=== PATIENT | female | born 1945 | race Caucasian/White ===

== ENCOUNTER 2021-01-05 20:36 | Inpatient (IN) | payer MEDICARE ==
[~2021-01-05] VITALS: Ht 165.1 cm; Wt 59.3 kg
[~2021-01-05 20:36] MED LIST: Colace100 MG PO; Norco 5-325 Ta1 EACH PO
[2021-01-05 21:13] LABS: BASOPHILS ABSOLUTE AUTO 0.06 K/mm3 (0.00-0.23); BASOPHILS PERCENT AUTO 1 % (0-2); EOSINOPHILS ABSOLUTE AUTO 0.13 K/mm3 (0.00-0.68); EOSINOPHILS PERCENT AUTO 2 % (0-6); Hematocrit 39.6 % (33.0-51.0); Hemoglobin 13.4 g/dL (11.5-16.0); IMMATURE GRAN ABSOLUTE AUTO 0.03 K/mm3 (0.00-0.10); IMMATURE GRAN PERCENT AUTO 0 % (0-1); LYMPHOCYTES ABSOLUTE AUTO 2.01 K/mm3 (0.84-5.20); LYMPHOCYTES PERCENT AUTO 25 % (21-46); MONOCYTES ABSOLUTE AUTO 0.79 K/mm3 (0.16-1.47); MONOCYTES PERCENT AUTO 10 % (4-13); Mean Corpuscular HGB 29.3 pg (26.0-34.0); Mean Corpuscular HGB Conc 33.8 g/dL (31.5-36.5); Mean Corpuscular Volume 87 fL (80-100); Mean Platelet Volume 11.6 fL (9.1-12.4); NEUTROPHILS ABSOLUTE AUTO 5.14 K/mm3 (1.96-9.15); NEUTROPHILS PERCENT AUTO 63 % (41-73); Platelet Count 227 K/mm3 (150-400); RDW Standard Deviation 43.8 fL (35.1-46.3); Red Blood Cell Count 4.58 M/mm3 (3.80-5.20); White Blood Cell Count 8.16 K/mm3 (4.00-11.30)
[2021-01-05 21:35] LABS: Alanine Aminotransfer (ALT/SGP 13 U/L (12-78); Albumin, Blood 3.7 g/dL (3.4-5.0); Albumin/Globulin Ratio 0.8 (0.8-1.8); Alk Phos 94 U/L (50-136); Anion Gap 8 mmol/L (6-16); Aspartate Aminotrans (AST/SGOT 13 U/L (12-37); Bilirubin, Total 0.4 mg/dL (0.1-1.0); Blood Urea Nitrogen 34 mg/dL (8-24); Bun/Creatinine Ratio 28.6 (12.0-20.0); CO2, Blood 22 mmol/L (21-32); CPK Creatine Kinase 50 U/L (26-193); Calcium, Blood 9.2 mg/dL (8.5-10.1); Chloride, Blood 112 mmol/L (98-108); Creatine Kinase MB 1.5 ng/mL (0.0-3.6); Creatinine, Blood 1.19 mg/dL (0.40-1.00); Globulin, Blood 4.6 g/dL (2.2-4.0); Glomerular Filtration Rate 44 (60-); Glucose, Blood 118 mg/dL (70-99); Potassium, Blood 3.4 mmol/L (3.5-5.5); Sodium, Blood 142 mmol/L (136-145); Total Protein, Blood 8.3 g/dL (6.4-8.2); Troponin I <0.015 ng/mL (0.000-0.040)
[2021-01-06 01:27] LABS: Source, Urine Clean Catch
[2021-01-06 01:30] LABS: Bilirubin, Urine Neg (Neg); Blood, Urine 4+ (Neg); Glucose Qualitative, Urine Neg (Neg); Ketones, Urine 1+ (Neg); Leukocyte Esterase, Urine Neg (Neg); Nitrite, Urine Neg (Neg); Protein, Urine 3+ (Neg); Specific Gravity, Urine 1.025 (1.003-1.022); Urobilinogen, Urine NORM (Normal)
[2021-01-06 01:36] LABS: Appearance, Urine Clear (Clear); Color, Urine Yellow (P-Yellow)
[2021-01-06 01:37] LABS: Amorphous Light (0-Heavy); Bacteria Few /hpf; Red Blood Cells, Urine 0-2 /hpf (0-2); Squamous Epithelial Cells Mod /hpf (Few); White Blood Cells, Urine Not Seen /hpf (0-5)
[2021-01-06 05:31] LABS: BASOPHILS ABSOLUTE AUTO 0.04 K/mm3 (0.00-0.23); BASOPHILS PERCENT AUTO 1 % (0-2); EOSINOPHILS ABSOLUTE AUTO 0.15 K/mm3 (0.00-0.68); EOSINOPHILS PERCENT AUTO 2 % (0-6); Hematocrit 34.8 % (33.0-51.0); Hemoglobin 11.4 g/dL (11.5-16.0); IMMATURE GRAN ABSOLUTE AUTO 0.02 K/mm3 (0.00-0.10); IMMATURE GRAN PERCENT AUTO 0 % (0-1); LYMPHOCYTES ABSOLUTE AUTO 2.42 K/mm3 (0.84-5.20); LYMPHOCYTES PERCENT AUTO 32 % (21-46); MONOCYTES ABSOLUTE AUTO 0.77 K/mm3 (0.16-1.47); MONOCYTES PERCENT AUTO 10 % (4-13); Mean Corpuscular HGB 28.5 pg (26.0-34.0); Mean Corpuscular HGB Conc 32.8 g/dL (31.5-36.5); Mean Corpuscular Volume 87 fL (80-100); Mean Platelet Volume 11.4 fL (9.1-12.4); NEUTROPHILS ABSOLUTE AUTO 4.22 K/mm3 (1.96-9.15); NEUTROPHILS PERCENT AUTO 55 % (41-73); Platelet Count 191 K/mm3 (150-400); RDW Coefficient Variation 13.9 % (11.7-14.2); RDW Standard Deviation 45.1 fL (35.1-46.3); White Blood Cell Count 7.62 K/mm3 (4.00-11.30)
[2021-01-06 06:00] LABS: Albumin/Globulin Ratio 0.9 (0.8-1.8); Bilirubin, Total 0.4 mg/dL (0.1-1.0); Bun/Creatinine Ratio 26.1 (12.0-20.0); Calcium, Blood 8.2 mg/dL (8.5-10.1); Creatinine, Blood 1.11 mg/dL (0.40-1.00); Globulin, Blood 3.5 g/dL (2.2-4.0); Potassium, Blood 3.7 mmol/L (3.5-5.5); Total Protein, Blood 6.5 g/dL (6.4-8.2)
[2021-01-06 13:05] LABS: Source, Urine Clean Catch
[2021-01-06 13:26] LABS: Bilirubin, Urine Neg (Neg); Blood, Urine 3+ (Neg); Color, Urine Yellow (P-Yellow); Glucose Qualitative, Urine Neg (Neg); Ketones, Urine Neg (Neg); Leukocyte Esterase, Urine 1+ (Neg); Nitrite, Urine Neg (Neg); Protein, Urine 2+ (Neg); Specific Gravity, Urine 1.015 (1.003-1.022); Urobilinogen, Urine NORM (Normal); pH, Urine 6.5 (5.0-8.0)
[2021-01-06 13:50] LABS: U Amphetamine Screen Not Detected; U Barbituate Screen Not Detected; U Benzodiazapine Screen Not Detected; U Buprenorphine Screen Not Detected; U Cannabinoids Screen DETECTED; U Cocaine Screen Not Detected; U Methadone Screen Not Detected; U Methamphetamine Screen Not Detected; U Opiates Screen Not Detected; U Oxycodone Screen Not Detected; U Phencyclidine Screen Not Detected; U Propoxyphene Screen Not Detected
[2021-01-06 14:08] LABS: Appearance, Urine Hazy (Clear)
[2021-01-06 14:10] LABS: Amorphous Light (0-Heavy); Bacteria Many /hpf; Squamous Epithelial Cells Many /hpf (Few)
[2021-01-06 14:11] LABS: Hyaline Casts 0-2 /lpf (0-2)
--- NOTE | 2021-01-06 14:20 | NUR ---
Echocardiogram completed.
[2021-01-07 04:55] LABS: Bun/Creatinine Ratio 23.3 (12.0-20.0); Calcium, Blood 9.7 mg/dL (8.5-10.1); Creatinine, Blood 1.16 mg/dL (0.40-1.00); Potassium, Blood 4.1 mmol/L (3.5-5.5)
--- NOTE | 2021-01-07 05:06 | NUR ---
SUMMARY PT CONTINUES TO HAVE BACK DISCOMFORT. PT PAIN TX W/ ULTRAM AND TORADOL. PT DISCOMFORT WAS RELIEVED AND ABLE TO SLEEP. PT HAS BEEN VOIDING WELL T/O SHIFT. PT CURRENTLY AWAKE AND IN NO DISTRESS. CALL LIGHT IN REACH AND BED ALARM ON.
[2021-01-07] MEDS ORDERED: METO25 PO (13:43)
[2021-01-07] MEDS ORDERED: AMLO10 PO (13:43)
[2021-01-07] MEDS ORDERED: THERA-D2000 UNIT PO (13:44)
[2021-01-07] MEDS ORDERED: SERT50 PO (13:44)
[2021-01-07] MEDS ORDERED: TRAM50 PO (13:46)
--- NOTE | 2021-01-07 14:28 | NUR ---
PT IS A&O, PLEASANT AND CO-OP. C/O NAUSEA AT START OF SHIFT. UP TO BTHRM WITH SBA USING FWW D/T DIZZINESS. MEDICATED WITH ULTRAM X1 FOR LBP. PT REPORTED PAIN BEING GONE NOW. DR CHAPA HERE TO SEE PT THIS AM. REQUESTED TO BE NOTIFIED WHEN PT'S SON ARRIVED. DR CHAPA RETURNED TO TALK WITH PT AND SON. D/C ORDERS PLACED. PT TO GO TO SON'S HOUSE FOR A FEW DAYS. [facility] [place], PER PT REQUEST. PT TO F/U WITH DR CHAPA IN 2 WEEKS. PT WANTING TO MAKE HER OWN APPOINTMENT, SON WILL NEED TO TAKE HER. TELE AND IV SITE D/C'D WNL. PT CALLING SON BACK TO PICK HER UP.
== END 2021-01-07 14:58 | disposition home health service (06) | DRG 544 ==
LOC: ER 20:36 → ERHOLD 23:50 → MEDS 23:50
PROVIDERS: Family Medicine; Physician Assistant; ADMIT Internal Medicine
DX: M80.88XA Other osteoporosis with current pathological fracture, vertebra(e), initial encounter for fracture (principal); S79.911A Unspecified injury of right hip, initial encounter; M80.021A Age-related osteoporosis with current pathological fracture, right humerus, initial encounter for fracture; R55 Syncope and collapse; I51.7 Cardiomegaly; I16.0 Hypertensive urgency; I12.9 Hypertensive chronic kidney disease with stage 1 through stage 4 chronic kidney disease, or unspecified chronic kidney disease; F32.9 Major depressive disorder, single episode, unspecified; N18.9 Chronic kidney disease, unspecified; E87.6 Hypokalemia; R91.8 Other nonspecific abnormal finding of lung field; E86.0 Dehydration; R94.31 Abnormal electrocardiogram [ECG] [EKG]; W18.30XA Fall on same level, unspecified, initial encounter; Z87.891 Personal history of nicotine dependence; Z79.899 Other long term (current) drug therapy; Z86.73 Personal history of transient ischemic attack (TIA), and cerebral infarction without residual deficits
CPT/HCPCS: 36415; 70450; 71045; 72100; 72170; 73060; 80048; 80053; 81001; 82550; 82553; 84484; 85025; 87086; 93005; 93010; 93306; 96372; 96374; 96375; 96376; 97110; 97162; 97165; 97535; 99285-25; A9270; J0360; J1650; J1885; J2405; J3010; J7030; L0160

== ENCOUNTER → 2021-02-13 | Outpatient (CLI) | payer MEDICARE ==
[~2021-02-13] MED LIST changes: +AMLO10 PO; +METO25 PO; +SERT50 PO; +THERA-D2000 UNIT PO; +TRAM50 PO
[2021-02-13 13:28] LABS: Free Thyroxine 0.79 ng/dL (0.70-1.60)
[2021-02-13 13:31] LABS: Thyroid Stimulating Hormone 1.4 uIU/mL (0.360-4.800)
== END | disposition home or self-care (01) ==
LOC: LAB 11:09 → LAB SHORT 11:09
PROVIDERS: Family Medicine
DX: F32.9 Major depressive disorder, single episode, unspecified (principal)
CPT/HCPCS: 84439; 84443

== ENCOUNTER 2022-03-03 12:34 | Inpatient (IN) | payer MEDICARE ==
[~2022-03-03] VITALS: Ht 165.1 cm; Wt 59.4 kg
[2022-03-03 13:36] LABS: BASOPHILS ABSOLUTE AUTO 0.05 K/mm3 (0.00-0.23); BASOPHILS PERCENT AUTO 0 % (0-2); EOSINOPHILS ABSOLUTE AUTO 0.05 K/mm3 (0.00-0.68); EOSINOPHILS PERCENT AUTO 0 % (0-6); Hematocrit 42.4 % (33.0-51.0); Hemoglobin 14.3 g/dL (11.5-16.0); IMMATURE GRAN ABSOLUTE AUTO 0.06 K/mm3 (0.00-0.10); IMMATURE GRAN PERCENT AUTO 1 % (0-1); LYMPHOCYTES ABSOLUTE AUTO 1.32 K/mm3 (0.84-5.20); LYMPHOCYTES PERCENT AUTO 10 % (21-46); MONOCYTES ABSOLUTE AUTO 0.84 K/mm3 (0.16-1.47); MONOCYTES PERCENT AUTO 6 % (4-13); Mean Corpuscular HGB 29.5 pg (26.0-34.0); Mean Corpuscular HGB Conc 33.7 g/dL (31.5-36.5); Mean Corpuscular Volume 87 fL (80-100); Mean Platelet Volume 11.7 fL (9.1-12.4); NEUTROPHILS ABSOLUTE AUTO 10.96 K/mm3 (1.96-9.15); NEUTROPHILS PERCENT AUTO 83 % (41-73); Platelet Count 271 K/mm3 (150-400); RDW Coefficient Variation 13.5 % (11.7-14.2); RDW Standard Deviation 43.7 fL (35.1-46.3); Red Blood Cell Count 4.85 M/mm3 (3.80-5.20); White Blood Cell Count 13.28 K/mm3 (4.00-11.30)
[2022-03-03 13:50] LABS: Albumin, Blood 3.9 g/dL (3.4-5.0); Albumin/Globulin Ratio 0.9 (0.8-1.8); Bilirubin, Total 0.3 mg/dL (0.1-1.0); Bun/Creatinine Ratio 20.3 (12.0-20.0); Calcium, Blood 10.1 mg/dL (8.5-10.1); Creatinine, Blood 1.82 mg/dL (0.40-1.00); Globulin, Blood 4.3 g/dL (2.2-4.0); Potassium, Blood 4.2 mmol/L (3.5-5.5); Total Protein, Blood 8.2 g/dL (6.4-8.2)
[2022-03-03] MEDS ORDERED: ESCI10 PO (15:48)
[2022-03-03] MEDS ORDERED: LISINOPRIL-HCT1 EACH PO (15:49)
[2022-03-03 16:30] LABS: Magnesium, Blood 2.4 mg/dL (1.6-2.4)
[2022-03-03 16:32] LABS: Thyroid Stimulating Hormone 3.27 uIU/mL (0.360-4.800)
[2022-03-03 17:41] LABS: Source, Urine Clean Catch
[2022-03-03 17:57] LABS: Appearance, Urine Clear (Clear); Bilirubin, Urine Neg (Neg); Blood, Urine 3+ (Neg); Color, Urine Yellow (P-Yellow); Glucose Qualitative, Urine Neg (Neg); Ketones, Urine Neg (Neg); Leukocyte Esterase, Urine Neg (Neg); Nitrite, Urine Neg (Neg); Protein, Urine 3+ (Neg); Specific Gravity, Urine 1.025 (1.003-1.022); Urobilinogen, Urine NORM (Normal)
[2022-03-03 18:00] LABS: Bacteria Mod /hpf; Mucus Light (0-Heavy); Squamous Epithelial Cells Rare /hpf (Few); White Blood Cells, Urine 0-2 /hpf (0-5)
[2022-03-03 18:01] LABS: Amorphous Mod (0-Heavy)
[2022-03-03] MEDS ORDERED: LORA.5 PO (20:44)
[2022-03-04 04:01] LABS: BASOPHILS ABSOLUTE AUTO 0.05 K/mm3 (0.00-0.23); BASOPHILS PERCENT AUTO 1 % (0-2); EOSINOPHILS ABSOLUTE AUTO 0.13 K/mm3 (0.00-0.68); EOSINOPHILS PERCENT AUTO 1 % (0-6); Hematocrit 39.4 % (33.0-51.0); Hemoglobin 13.2 g/dL (11.5-16.0); IMMATURE GRAN ABSOLUTE AUTO 0.03 K/mm3 (0.00-0.10); IMMATURE GRAN PERCENT AUTO 0 % (0-1); LYMPHOCYTES ABSOLUTE AUTO 2.02 K/mm3 (0.84-5.20); LYMPHOCYTES PERCENT AUTO 21 % (21-46); MONOCYTES ABSOLUTE AUTO 1.12 K/mm3 (0.16-1.47); MONOCYTES PERCENT AUTO 12 % (4-13); Mean Corpuscular HGB 29.7 pg (26.0-34.0); Mean Corpuscular HGB Conc 33.5 g/dL (31.5-36.5); Mean Corpuscular Volume 89 fL (80-100); Mean Platelet Volume 11.8 fL (9.1-12.4); NEUTROPHILS PERCENT AUTO 66 % (41-73); Platelet Count 258 K/mm3 (150-400); RDW Coefficient Variation 13.7 % (11.7-14.2); RDW Standard Deviation 44.6 fL (35.1-46.3); Red Blood Cell Count 4.45 M/mm3 (3.80-5.20); White Blood Cell Count 9.75 K/mm3 (4.00-11.30)
[2022-03-04 04:25] LABS: Albumin, Blood 3.4 g/dL (3.4-5.0); Albumin/Globulin Ratio 0.8 (0.8-1.8); Bilirubin, Total 0.5 mg/dL (0.1-1.0); Calcium, Blood 9.5 mg/dL (8.5-10.1); Creatinine, Blood 2.1 mg/dL (0.40-1.00); Globulin, Blood 4.1 g/dL (2.2-4.0); Potassium, Blood 4.2 mmol/L (3.5-5.5); Total Protein, Blood 7.5 g/dL (6.4-8.2)
--- NOTE | 2022-03-04 06:25 | NUR ---
SHIFT SUMMARY PT ALERT AND ORIENTED X4. ER ADMIT, ARRIVAL TO PCU AT 2025. HR SR 60-90'S. AFEBRILE. ON RA SATS OVER 98%. PT HYPERTENSIVE ON ARRIVAL, SYSTOLIC IN 170'S. BP RELIEVED WITH PO MEDICATIONS IN ADDITION TO PRN HYDRALAZINE TO SYSTOLIC 130-150'S. PT ASLEEP MOST OF NIGHT, IN BEDREST BESIDES PIVOT FROM ER GURNEY. IN BED WITH CALL ALARM AT SIDE. WILL CONTINUE TO MONITOR UNTIL REPORT GIVEN TO DAYSHIFT RN
--- NOTE | 2022-03-04 11:49 | NUR ---
ASSUMED CARE OF PT AT 0700. PT ABLE TO AMBULATE WITH ONE PERSON ASSISTANCE, GAIT BELT AND WALKER TO RESTROOM. IT REQUIRED TWO STAFF TO HELP PT STAND FROM THE TOILET. PT'S SON AT BEDSIDE STATES PT WILL BE COMING TO LIVE WITH HIM AT DISCHARGE. 1138: ORTHOSTATIC VS COMPLETED LAYING: BP 132/61 HR 62 SITTING: BP 121/67 HR 63 STANDING: BP 123/70 HR 65 PT TOLERATED WELL, NO DIZZINESS REPORTED. PT AT BEDSIDE DURRING ORTHOSTATIC VS DOING EVALUATION. CALL LIGHT IN REACH. WILL CONTINUE TO MONITOR.
--- NOTE | 2022-03-04 18:50 | NUR ---
NO ACUTE EVENTS T/O SHIFT. RENAL AND CAROTID US COMPLETED TODAY, CONSULT TO DR KEANE CALLED TO ANSWERING SERVICE. PT RESTING QUIETLY MOST OF THE DAY, NO COMPLAINTS OR S/SX OF DISTRESS. PT'S SON AT BEDSIDE THIS AFTERNOON AND UPDATED ON PLAN OF CARE BY DR TORRES. CALL LIGHT IN REACH, PT USES APPROPRIATELY FOR NEEDS, WILL CONTINUE TO MONITOR AND GIVE REPORT TO NOC SHIFT RN.
--- NOTE | 2022-03-05 05:12 | NUR ---
SHIFT SUMMARY NO ACUTE EVENTS OVERNIGHT. PT ALERT AND ORIENTED X4. AFEBRILE. HR SB/SR 50-70'S. BP STABLE. ON RA SATS OVER 97%. X1 ASSIST FOR ADL'S. PT INCONTINENT. RESTING IN BED MOST OF NIGHT. ASLEEP WITH CALL ALARM AT SIDE, WILL CONTINUE TO MONITOR UNTIL REPORT GIVEN TO ONCOMING RN
[2022-03-05 05:15] LABS: Hematocrit 38.5 % (33.0-51.0); Hemoglobin 12.6 g/dL (11.5-16.0); Mean Corpuscular HGB 29.3 pg (26.0-34.0); Mean Corpuscular HGB Conc 32.7 g/dL (31.5-36.5); Mean Corpuscular Volume 90 fL (80-100); Platelet Count 239 K/mm3 (150-400); RDW Coefficient Variation 14.1 % (11.7-14.2); RDW Standard Deviation 45.9 fL (35.1-46.3); White Blood Cell Count 5.95 K/mm3 (4.00-11.30)
[2022-03-05 05:58] LABS: Albumin, Blood 3.2 g/dL (3.4-5.0); Albumin/Globulin Ratio 0.8 (0.8-1.8); Bilirubin, Total 0.5 mg/dL (0.1-1.0); Bun/Creatinine Ratio 23.6 (12.0-20.0); Creatinine, Blood 2.59 mg/dL (0.40-1.00); Globulin, Blood 4.2 g/dL (2.2-4.0); Magnesium, Blood 2.5 mg/dL (1.6-2.4); Thyroid Stimulating Hormone 3.35 uIU/mL (0.360-4.800); Total Protein, Blood 7.4 g/dL (6.4-8.2)
--- NOTE | 2022-03-05 18:22 | NUR ---
ASSUMED CARE OF PT AT 0700. NO ACUTE EVENTS T/O THE SHIFT. PT MEDICATED ONCE TODAY FOR HIGH BP. PT TO MRI W/O DIFFICULTIES. PT SON AT BEDSIDE AND UPDATED ON PLAN OF CARE BY DR TORRES. AWAITING VASCULAR CONSULT WHEN MD AVAILABLE. PT HAS HAD NO COMPLAINTS. BED ALARM ON FOR SAFETY, CALL LIGHT IN REACH, WILL CONTINUE TO MONITOR AND GIVE REPORT TO NOC SHIFT RN.
[2022-03-06 05:14] LABS: Bun/Creatinine Ratio 23.4 (12.0-20.0); Calcium, Blood 8.8 mg/dL (8.5-10.1); Creatinine, Blood 2.69 mg/dL (0.40-1.00); Potassium, Blood 3.9 mmol/L (3.5-5.5)
--- NOTE | 2022-03-06 05:18 | NUR ---
SHIFT SUMMARY NO ACUTE EVENTS OVERNIGHT. PT ALERT AND ORIENTED X4. AFEBRILE. HR SR 60-70'S. BP STABLE. ON RA SATS OVER 97%. 1/2 NS RUNNING AT 100ML/HR. RIGHT FOOT PAIN MEDICATED PER EMAR. PT RESTING COMFORTABLY MOST OF NIGHT. IN BED SLEEPING WITH CALL ALARM AT SIDE, WILL CONTINUE TO MONITOR UNTIL REPORT GIVEN TO ONCOMING RN
[2022-03-06 17:04] LABS: Anion Gap 9 mmol/L (6-16); Blood Urea Nitrogen 54 mg/dL (8-24); Bun/Creatinine Ratio 26.3 (12.0-20.0); CO2, Blood 21 mmol/L (21-32); Calcium, Blood 8.2 mg/dL (8.5-10.1); Chloride, Blood 106 mmol/L (98-108); Creatinine, Blood 2.05 mg/dL (0.40-1.00); Glomerular Filtration Rate 25 (60-); Glucose, Blood 84 mg/dL (70-99); Phosphorus, Blood 3.7 mg/dL (2.5-4.9); Potassium, Blood 4.3 mmol/L (3.5-5.5); Sodium, Blood 136 mmol/L (136-145)
--- NOTE | 2022-03-06 17:42 | NUR ---
SHIFT SUMMARY PT HAS BEEN SLEEPING FOR A LARGE PORTION OF THE DAY, THEY HAVE BEEN READILY ROUSABLE BY VOICE OR GENTLE TOUCH. PT WAS UNABLE TO CORRECTLY IDENTIFY THE TIME/DATE, EVENT LEADING TO ADMISSION, OR THIS RN'S NAME. PT HAS BEEN CONSISTENTLY INCONTINENT OF BLADDER. PT DOES NOT SEEM TO BE AWARE OF INCONTINENT EPISODES. HYPERTENSION HAS PERSISTED (SBP 149-181). PT HAS BEEN VERY SLOW TO RESPOND TO QUESTIONS, EVEN REQUIRING MULTIPLE PROMPTS TO ANSWER. PT HAS HAD NO BOWEL MOVEMENT TODAY.
--- NOTE | 2022-03-06 18:00 | NUR ---
UPDATE PURE-WICK WAS PLACED DUE TO INCONTINENCE. PT IS UNAWARE OF EPISODES OF INCONTINENCE.
[2022-03-07 03:51] LABS: Hematocrit 35.4 % (33.0-51.0)
[2022-03-07 04:11] LABS: Albumin, Blood 2.9 g/dL (3.4-5.0); Anion Gap 8 mmol/L (6-16); Blood Urea Nitrogen 52 mg/dL (8-24); Bun/Creatinine Ratio 27.8 (12.0-20.0); CO2, Blood 21 mmol/L (21-32); Calcium, Blood 8.3 mg/dL (8.5-10.1); Chloride, Blood 109 mmol/L (98-108); Creatinine, Blood 1.87 mg/dL (0.40-1.00); Glomerular Filtration Rate 28 (60-); Glucose, Blood 85 mg/dL (70-99); Phosphorus, Blood 3.9 mg/dL (2.5-4.9); Potassium, Blood 3.9 mmol/L (3.5-5.5); Sodium, Blood 138 mmol/L (136-145)
--- NOTE | 2022-03-07 06:34 | NUR ---
PATIENT REMAINS HYPERTENSIVE WITH SYSTOLIC BLOOD PRESSURE EXCEEDING THE PARAMETERS OF 160 AND RESULTING IN THE ADMINISTRATION OF 10 MG IV HYDRALAZINE ORDERED. FIRST ATTEMPT TO START 24 HOUR URINE COLLECTION UNSUCCESSFUL. ORIGINALLY STARTED AT 2020, NOW RESTARTED AT 0610. PATIENT HAD INCONTINENT EPISODE RESULTING IN LOST URINE CATCH. LATESHA CARE PROVIDED, GOWN & LINENS CHANGED, PUREWICK IN PLACE, NEW URINE COLLECTION CONTAINER IN PLACE.
[2022-03-07 14:57] LABS: Source, Urine Foley catheter
[2022-03-07 14:59] LABS: Appearance, Urine Clear (Clear); Bilirubin, Urine Neg (Neg); Blood, Urine 3+ (Neg); Color, Urine Yellow (P-Yellow); Glucose Qualitative, Urine Neg (Neg); Ketones, Urine Neg (Neg); Leukocyte Esterase, Urine Neg (Neg); Nitrite, Urine Neg (Neg); Protein, Urine 2+ (Neg); Specific Gravity, Urine 1.015 (1.003-1.022); Urobilinogen, Urine NORM (Normal)
[2022-03-07 15:15] LABS: Bacteria Rare /hpf; Squamous Epithelial Cells Few /hpf (Few); White Blood Cells, Urine 0-2 /hpf (0-5)
--- NOTE | 2022-03-07 16:10 | NUR ---
Shift summary Pt appears to be sleeping for majority of shift. Alert, oriented x3; forgetful at times. Pt up in chair with 1 person assist with walker and gaitbelt. Pt denies pain, chest pain, sob, nausea and dizziness during shift. Ls clear, spo2 >90% on ra. Tele sinus 60's, bp elevated but stable. Abd soft, nontender. Medina placed this afternoon for 24hr urine, pt incontinent. Vss. No other acute changes noted. Will continue to monitor until report given to oncoming rn.
[2022-03-08 04:14] LABS: Hematocrit 33.8 % (33.0-51.0); Hemoglobin 11.3 g/dL (11.5-16.0)
[2022-03-08 04:44] LABS: Albumin, Blood 2.7 g/dL (3.4-5.0); Anion Gap 7 mmol/L (6-16); Blood Urea Nitrogen 45 mg/dL (8-24); Bun/Creatinine Ratio 29.4 (12.0-20.0); CO2, Blood 24 mmol/L (21-32); Calcium, Blood 8.2 mg/dL (8.5-10.1); Chloride, Blood 108 mmol/L (98-108); Creatinine, Blood 1.53 mg/dL (0.40-1.00); Glomerular Filtration Rate 35 (60-); Glucose, Blood 89 mg/dL (70-99); Magnesium, Blood 1.8 mg/dL (1.6-2.4); Potassium, Blood 3.6 mmol/L (3.5-5.5); Sodium, Blood 139 mmol/L (136-145)
--- NOTE | 2022-03-08 05:49 | NUR ---
PT REMAINS HYPERTENSIVE, REQUIRING INTERVENTION WITH PRN HYDRALAZINE ORDERED. HEART RATE IS IN THE MID TO HIGH 50S WHILE AWAKE AND SLEEPING. PT DENIED ANY DIZZINESS OR "FEELING WOOZY" SHE DESCRIBES IT. MORE TALKATIVE THIS EVENING. RESPONSES TO QUESTIONS WERE APPROPRIATE, NO OBSERVED DELAY IN HER RESPONSES. SODIUM BIACARBONATE DRIP DISCONTINUED AT 05:15 THIS MORNING. 24 HOUR URINE COLLECTION ONGOING UNTIL SCHEDULED COMPLETION AT 14:45 TODAY.
--- NOTE | 2022-03-08 15:57 | NUR ---
SHIFT SUMMARY PT A&Ox3, CALM AND COOPERATIVE WITH CARE. PT APPEARS TO BE SLEEPING INTERMITTENTLY DURING SHIFT. PT RESTING IN BED. UP WITH 1 PERSON ASSIST TO BSC. PT DENIES PAIN, CHEST PAIN, SOB, NAUSEA, AND DIZZINESS. TELE SINUS JOHN TO SINUS 50-60'S, BP ELEVATED BUT STABLE. LS CLEAR, SPO2 >90% ON RA, BREATHING EVEN AND UNLABORED. 24 HR URINE COMPLETED AND SEND TO LAB, TENZIN D/C THIS AFTERNOON, AWAIT POST REMOVAL VOID. OTHER VSS. NO OTHER ACUTE CHANGES NOTED. PLANS FOR ANGIO IN AM AND NPO AT MIDNIGHT. WILL CONTINUE TO MONITOR UNTIL REPORT GIVEN TO ONCOMING RN.
[2022-03-09 04:31] LABS: Hematocrit 35.5 % (33.0-51.0); Hemoglobin 11.6 g/dL (11.5-16.0)
[2022-03-09 04:49] LABS: Albumin, Blood 2.9 g/dL (3.4-5.0); Anion Gap 6 mmol/L (6-16); Blood Urea Nitrogen 34 mg/dL (8-24); Bun/Creatinine Ratio 22.5 (12.0-20.0); CO2, Blood 26 mmol/L (21-32); Calcium, Blood 8.6 mg/dL (8.5-10.1); Chloride, Blood 108 mmol/L (98-108); Creatinine, Blood 1.51 mg/dL (0.40-1.00); Glomerular Filtration Rate 36 (60-); Glucose, Blood 95 mg/dL (70-99); Magnesium, Blood 1.8 mg/dL (1.6-2.4); Phosphorus, Blood 2.7 mg/dL (2.5-4.9); Sodium, Blood 140 mmol/L (136-145)
--- NOTE | 2022-03-09 06:34 | NUR ---
HYPERTENSION BETTER CONTROLLED OVERNIGHT COMPARED TO THE PREVIOUS TWO NIGHTS. NO NEED FOR ANY PRN ANTT-HYPERTENSIVES. MS. COPELAND IS MORE ALERT AND WANTING TO BE MORE ACTIVE. SHE IS NOT USING THE CALL LIGHT APPROPRIATELY WHEN SHE WANTS TO GET UP. SHE SET OFF THE BED ALARM MULTIPLE TIMES SINCE 0430 THIS MORNING. MS. COPELAND DENIED ANY DIZZINESS WITH STANDING AND/OR AMBULATING. HOWEVER, SHE CAN BE A BIT UNSTEADY ON HER FEET. USE OF GAIT BELT AND WALKER IS NEEDED WITH ALL AMBULATION. ALSO, PATIENT SHOULD NOT BE LEFT UNATTENDED IN THE BATHROOM. SHE IS FORGETFUL AND WILL ATTEMPT TO GET UP ON HER OWN WITHOUT PULLING THE BATHROOM SAFETY CORD. PT DID HAVE AN INCONTINENT EPISODE WHILE SLEEPING. SHE DENIES THIS OCCURRING AT HOME. PT HAS BEEN NPO SINCE MIDNIGHT FOR ANGIOGRAM TODAY.
--- NOTE | 2022-03-09 18:24 | NUR ---
Shift Summary Pt a&o x3; forgetful/confused. Pt denies pain, chest pain, sob, and dizziness. Pt reporting nausea this am, medicated per emar. Pt to civil laboratory technician this afternoon, 3 stents placed to renal arteries. VSS. Right groin site angioseal in place, this afternoon pt up at side of bed before recovery, slight bruising and additional bleeding noted, held pressure and notified Dr Butcher. No other acute changes noted. Will continue to monitor.
[2022-03-10 04:36] LABS: Hematocrit 35.7 % (33.0-51.0); Hemoglobin 11.6 g/dL (11.5-16.0); Mean Corpuscular HGB 29.1 pg (26.0-34.0); Mean Corpuscular HGB Conc 32.5 g/dL (31.5-36.5); Mean Corpuscular Volume 90 fL (80-100); Platelet Count 171 K/mm3 (150-400); RDW Coefficient Variation 14.2 % (11.7-14.2); RDW Standard Deviation 46.1 fL (35.1-46.3); Red Blood Cell Count 3.99 M/mm3 (3.80-5.20); White Blood Cell Count 5.67 K/mm3 (4.00-11.30)
[2022-03-10 05:03] LABS: Albumin, Blood 3.1 g/dL (3.4-5.0); Albumin/Globulin Ratio 0.9 (0.8-1.8); Bilirubin, Total 0.3 mg/dL (0.1-1.0); Bun/Creatinine Ratio 15.6 (12.0-20.0); Creatinine, Blood 1.8 mg/dL (0.40-1.00); Globulin, Blood 3.6 g/dL (2.2-4.0); Magnesium, Blood 1.8 mg/dL (1.6-2.4); Phosphorus, Blood 3.3 mg/dL (2.5-4.9); Potassium, Blood 4.3 mmol/L (3.5-5.5); Total Protein, Blood 6.7 g/dL (6.4-8.2)
--- NOTE | 2022-03-10 06:10 | NUR ---
NO ACUTE VENTS OVERNIGHT. NO CHANGE TO PATIENT'S BASELINE. VITAL SIGNS REMAIN STABLE, NO HYPOTENSION, HEART RATE CONTINUES TO BE IN THE 50S-60S, AFEBRILE. MS. COPELAND CONTINUES TO HAVE INCONTINENT EPISODES WHILE SLEEPING. SHE FAILS TO USE THE CALL LIGHT APPROPRIATELY, INSTEAD WILL SET OFF THE BED ALARM ATTEMPTING TO GET OUT OF BED ON HER OWN. SHE IS ALERT AND ORIENTED X 4 BUT IS SLOW TO RESPOND TO QUESTIONS AT TIMES. RIGHT FEMORAL SITE HAS SOME OLD BLOOD UNDER THE DRESSING THAT OCCURED AT APPROXIMAELY 1700 YESTERDAY PER SHIFT REPORT. NO ADDITIONAL BLEEDING SINCE THAT TIME AND DRESSING REMAINS DRY AND INTACT. NO TENDERNESS AT THE SITE, NO LOW BACK PAIN, NO HEMATOMA.
--- NOTE | 2022-03-10 06:53 | NUR ---
CALL TO DR. MORALES MEYER PER HIS REQUEST BLADDER SCAN COMPLETED. VOLUME OF 73 mL
[2022-03-11 04:58] LABS: Hematocrit 34.6 % (33.0-51.0); Hemoglobin 11.7 g/dL (11.5-16.0)
[2022-03-11 05:58] LABS: Albumin, Blood 3.3 g/dL (3.4-5.0); Anion Gap 8 mmol/L (6-16); Blood Urea Nitrogen 33 mg/dL (8-24); CO2, Blood 22 mmol/L (21-32); Calcium, Blood 9.4 mg/dL (8.5-10.1); Chloride, Blood 106 mmol/L (98-108); Creatinine, Blood 1.94 mg/dL (0.40-1.00); Glomerular Filtration Rate 26 (60-); Glucose, Blood 122 mg/dL (70-99); Magnesium, Blood 1.9 mg/dL (1.6-2.4); Phosphorus, Blood 3.3 mg/dL (2.5-4.9); Sodium, Blood 136 mmol/L (136-145)
--- NOTE | 2022-03-11 06:52 | NUR ---
MS. BOOGIE REMAINS HYPERTENSIVE BUT DID NOT MEET THE THRESHOLD LAST NIGHT FOR ADMINISTRATION OD PRN HYDRALAZINE. PT WAS MUCH MORE QUIET, SOMEWHAT WITHDRAWN OVERNIGHT LAST NIGHT. SHE DID SHARE THAT SHE IS BOTH HAPPY AND SAD TO HAVE TO MOVE IN WITH HER SON. SHE IS CONCERNED THAT "THIS MEANS THE BEGINNING OF THE END OF MY LIFE." WHEN ASKED WHAT MAKES HER THINK THAT, SHE SIMPLY STATED THAT THAT SEEMS TO BE HOW LIFE GOES IN THAT YOU EITHER GO LIVE WITH YOUR KIDS OR YOU GO TO A [facility] IN THE LAST PART OF YOUR LIFE. IV FLUIDS INFUSING PER ORDERS FROM DR. MEYER. PT HAS BEEN NPO SINCE MIDNIGHT FOR POSSIBLE ANGIOGRAPY THE EVALUATE CAROTID ARTERIES.
--- NOTE | 2022-03-11 16:56 | NUR ---
SHIFT SUMMARY PT ALERT TO SELFT AND FAMILY INCLUDING SON AND GRANDSON AT BEDSIDE. SHE HAS A FLAT AFFECT AND IS WITHDRAWN. SHE HAS NOT USED HER CALL LIGHT BUT WILL MAKE HER NEEDS KNOWN WHEN STAFF IS IN THE ROOM. HR HAS RANGED 55-60 PER TELE REPORT, SHE HAS DENIED CHEST PAIN/PRESSURE WELL NAUSEA. SHE HAS REMAINED AFEBRILE. SPO2 >95% VIA ROOM AIR AND PT DENIED FEELING SOB. SHE HAS BEEN NPO STATUS FOR ANGIO TO EXPLORE CAROTIDS, NS INFUSING IN LEFT FOREARM PER EMAR ORDERS. SHE HAS BEEN A 1 PERSON TRANSFER W/FWW TO BEDSIDE COMMODE. IV IN LEFT AC IS SALINE LOCKED. SHE HAS INTERMITTEN EPISODES OF INCONTINENCE OF URINE. FREQUENT BRIEF CHECKS TO ENSURE SKIN IS DRY/CLEAN. Q2 TURNING IMPLIMENTED TO PREVENT SKIN BREAKDOWN. R FEMORAL ANGIOSEAL REMAINS UNCHANGED FROM PREVIOUS ASSESSMENT, SMALL AMOUNT OF DRY BLOOD NOTED BUT IS NOT PAINFUL PER PT REPORT, TRANSPARENT DRESSING IN PLACE. NO ACUTE CHANGES NOTED DURING SHIFT. CALL LIGHT IS IN REACH AND PT IS CURRENTLY SLEEPING. BED ALARM ON.
--- NOTE | 2022-03-11 18:26 | NUR ---
CARE NOTE PT ARRIVED FROM DRY HOUSE OPERATOR APPROX. 1820 VIA HOSP BED. RIGHT ANGIOSEAL REACCESSED, SITE IS COVERED W/ CHG DRESSING W/ NO SIGNS OF APPARENT BLEEDING, SITE IS COVERED W/ CHG DRESSING. MINIMAL BRUISING NOTED. PT DENIES FEELINGS OF PAIN. SHE IS LAYING FLAT, BED ALARM ON AND CALL LIGHT IN REACH.
--- NOTE | 2022-03-11 21:47 | NUR ---
CARE ASSUMPTION: RECEIVED REPORT FROM THOMPSON CROSS. PATIENT RECENTLY RETURNED FROM WOMEN'S STUDIES LECTURER. REVIEWED ANGIO SITE WITH OFF-GOING RN. ANGIO SITE C/D/I, NONTENDER, NO HEMATOMA - MINIMAL BRUISING FROM RENAL PROCEDURE ON 03/09. SAME SITE WAS ACCESSED FOR ANGIO TODAY WAS USED FOR RENAL STENTS ON 03/09. BP MILDY ELEVATED, BRADYCARDIC, AFEBRILE. O2 SATS >92% RA. PATIENT WAS KEPT FLAT FOR 2 HRS AND HOB IS CURRENTLY ELEVATED 45-DEGREES. PATIENT TOLERATING WELL. MEDICATED PER EMAR. DR. KEANE CALLED PATIENT'S SON TO UPDATE HIM ON PLAN. BED ALARM SET AND CALL LIGHT IN REACH.
[2022-03-12 04:54] LABS: Hematocrit 31.4 % (33.0-51.0); Hemoglobin 10.3 g/dL (11.5-16.0)
[2022-03-12 05:12] LABS: Albumin, Blood 2.7 g/dL (3.4-5.0); Anion Gap 7 mmol/L (6-16); Blood Urea Nitrogen 40 mg/dL (8-24); Bun/Creatinine Ratio 21.1 (12.0-20.0); CO2, Blood 22 mmol/L (21-32); Chloride, Blood 112 mmol/L (98-108); Glomerular Filtration Rate 27 (60-); Glucose, Blood 100 mg/dL (70-99); Magnesium, Blood 2.2 mg/dL (1.6-2.4); Potassium, Blood 3.9 mmol/L (3.5-5.5); Sodium, Blood 141 mmol/L (136-145)
--- NOTE | 2022-03-12 06:40 | NUR ---
SHIFT SUMMARY: PATIENT DENIES PAIN OR SOB. PATIENT RECOVERED FROM R GROIN ANGIO - SITE C/D/I AND WNL. VS WNL ON RA - APNEIC EPISODES T/O SHIFT THAT PATIENT RECOVERED FROM QUICKLY. Q2 TURNS AND FREQUENT ATTENDS CHECKS. PATIENT HAS FLAT AFFECT AND DOES NOT MAKE NEEDS KNOWN OR USE CALL LIGHT. HOURLY ROUNDING. BED LOW WITH ALARM SET AND CALL LIGHT IN PLACE.
--- NOTE | 2022-03-12 17:12 | NUR ---
SHIFT SUMMARY PT HAS BEEN LETHARGIC AND WITHDRAWN. PT WAS ABLE TO CORRECTLY ANSWER MOST ORIENTATION QUESTIONS AT THIS RN'S ASSESSMENT THIS AM BUT APPEARS DISORIENTED AT EACH ENCOUNTER. PT HAS OFFERED MINIMAL VERBAL COMMUNICATION BUT HAS COOPERATED WITH CARE WITH DIRECTION. FAMILY WAS UPDATED ON CURRENT STATUS AND PLAN OF CARE. RIGHT GROIN SITE IS UNCHANGED FROM AM ASSESSMENT, MILD TENDERNESS, BRUISING, AND SMALL HEMATOMA. VITAL SIGNS STABLE, NO CHANGES IN CURRENT CONDITION.
[2022-03-13 03:49] LABS: Hematocrit 30.5 % (33.0-51.0); Hemoglobin 9.8 g/dL (11.5-16.0)
[2022-03-13 04:07] LABS: Albumin, Blood 2.7 g/dL (3.4-5.0); Anion Gap 9 mmol/L (6-16); Blood Urea Nitrogen 43 mg/dL (8-24); Bun/Creatinine Ratio 23.1 (12.0-20.0); CO2, Blood 23 mmol/L (21-32); Calcium, Blood 8.7 mg/dL (8.5-10.1); Chloride, Blood 108 mmol/L (98-108); Creatinine, Blood 1.86 mg/dL (0.40-1.00); Glomerular Filtration Rate 28 (60-); Glucose, Blood 89 mg/dL (70-99); Magnesium, Blood 1.8 mg/dL (1.6-2.4); Phosphorus, Blood 2.5 mg/dL (2.5-4.9); Potassium, Blood 3.9 mmol/L (3.5-5.5); Sodium, Blood 140 mmol/L (136-145)
--- NOTE | 2022-03-13 04:57 | NUR ---
SHIFT SUMMARY NO ACUTE EVENTS OVER NIGHT PT INTERACTED VERY LITTLE. VERY FLAT AFFECT BUT FOLLOWED DIRECTIONS. SHE DIDNT EAT ANY OF HER TRAY SHE SEEMS TO HAVE LITTLE INTEREST IN MUCH WONDER IF PT IS SUFFERING FROM DEPRESSION. VITAL SIGNS WERE STABLE ALTHOUGH SLIGHTLY HYPERTENSIVE. PT WAS INCONTINATE AND WASNT AWARE SHE VOIDED. WILL CONTINUE TO MONITORE AND REPORT TO ONCOMING RN.
--- NOTE | 2022-03-13 14:47 | NUR ---
Spoke with Primary RN Alyse prior to visit and discussed case. Pt resting in bed upon arrival. Pt's son and daughter in law at bedside. Pt denies pain, dyspnea, nausea, and anxiety at this time. Review plan of care with Pt and family. Pt and family agreeable with plan. Offered supportive listening and answered questions. Engaged in therapeutic discussion regarding considering completing AD and POLST. Pt and family express interest. Educated on each section to complete and educated on meaning of choice. Breif gentle education on life sustaining treatments including risk factors and implications of CPR. Family reports plan to discuss further and will complete at their convienance. Family expresses appreciation and report no concerns at this time. Palliative Care will remain available.
--- NOTE | 2022-03-13 17:52 | NUR ---
NO ACUTE EVENTS T/O THE SHIFT. PT WORKED WITH PHYSICAL THERAPY AND SAT UP IN CHAIR FOR LUNCH. PT DECLINED TO EAT DINNER. PT HAD NO COMPLAINTS. PLAN FOR TRANSFER TO HIGHER LEVEL OF CARE WHEN BED/SURGEON AVAILABLE. BED ALARM ON FOR SAFETY, PT CONFUSED AT TIMES. CALL LIGHT IN REACH, WILL CONTINUE TO MONITOR AND GIVE REPORT TO NOC SHIFT RN.
[2022-03-14 04:32] LABS: Hematocrit 29.1 % (33.0-51.0); Hemoglobin 9.6 g/dL (11.5-16.0)
[2022-03-14 05:01] LABS: Albumin, Blood 2.5 g/dL (3.4-5.0); Anion Gap 8 mmol/L (6-16); Blood Urea Nitrogen 40 mg/dL (8-24); Bun/Creatinine Ratio 23.8 (12.0-20.0); CO2, Blood 21 mmol/L (21-32); Calcium, Blood 8.5 mg/dL (8.5-10.1); Chloride, Blood 108 mmol/L (98-108); Creatinine, Blood 1.68 mg/dL (0.40-1.00); Glomerular Filtration Rate 31 (60-); Glucose, Blood 91 mg/dL (70-99); Magnesium, Blood 2.1 mg/dL (1.6-2.4); Phosphorus, Blood 2.4 mg/dL (2.5-4.9); Potassium, Blood 3.8 mmol/L (3.5-5.5); Sodium, Blood 137 mmol/L (136-145)
--- NOTE | 2022-03-14 05:20 | NUR ---
SHIFT SUMMARY NO ACUTE CHANGES NOTED, PT REMAINS A&O X3, FLAT AFFECT AND SLOW TO RESPOND,VSS, RESP UNLABORED, PT HAS BEEN ABLE TO SLEEP WITH NO PROBLEMS, LOW GRADE TEMP OF 99.6 NOTED, PT WAS GIVEN TYLENOL. CALL LIGHT IN REACH, WCTM & REPORT TO DAY RN
--- NOTE | 2022-03-14 10:06 | NUR ---
PT TRANSFERED TO RM [id number]. REPORT CALLED TO LESLIE MACKAY. ALL BELONGINGS SENT WITH PT AND PT'S SON TATI CONTACTED BY THIS RN AND INFORMED OF THE PT'S ROOM CHANGE.
--- NOTE | 2022-03-14 10:17 | NUR ---
pt arrived to 337 via wheelchair able to stand and tx to bed with sba, a/ox3, flat affect, states she's cold, turned up heat in room and extra blanket, got her settled in bed with call light in reach, and bedside table in reach. encouraged to call for any needs.
--- NOTE | 2022-03-14 16:30 | NUR ---
pt resting quietly, her family was in to visit, no acute changes, call light in reach.
--- NOTE | 2022-03-14 17:59 | NUR ---
SHIFT SUMMARY PT HAS BEEN RESTING QUIETLY SINCE THIS RN ASSUMED CARE AT 1700. PT TOOK 1700 MEDS WITHOUT DIFFICULTY. NO COMPLAINTS OR REQUESTS AT THIS TIME. CALL LIGHT IN REACH. WILL CONTINUE TO MONITOR AND REPORT TO ONCOMING RN.
[2022-03-15 04:52] LABS: Hematocrit 28.3 % (33.0-51.0); Hemoglobin 9.4 g/dL (11.5-16.0)
[2022-03-15 05:33] LABS: Albumin, Blood 2.6 g/dL (3.4-5.0); Anion Gap 8 mmol/L (6-16); Blood Urea Nitrogen 32 mg/dL (8-24); Bun/Creatinine Ratio 19.6 (12.0-20.0); CO2, Blood 23 mmol/L (21-32); Calcium, Blood 8.9 mg/dL (8.5-10.1); Chloride, Blood 105 mmol/L (98-108); Creatinine, Blood 1.63 mg/dL (0.40-1.00); Glomerular Filtration Rate 32 (60-); Glucose, Blood 92 mg/dL (70-99); Magnesium, Blood 2.1 mg/dL (1.6-2.4); Potassium, Blood 3.8 mmol/L (3.5-5.5); Sodium, Blood 136 mmol/L (136-145)
[2022-03-15 06:00] LABS: Source, Urine Clean Catch
--- NOTE | 2022-03-15 06:06 | NUR ---
NIGHTSHIFT SUMMARY Patient resting comfortably on arrival of shift. Patient arouses to voice. Vitals WNL, denied cardiac s/sx. Ambulated to bathroom, no reports of syncope, dizziness. Awaiting transfer, will continue to monitor.
[2022-03-15 06:08] LABS: Appearance, Urine Hazy (Clear); Bilirubin, Urine Neg (Neg); Blood, Urine 2+ (Neg); Color, Urine Yellow (P-Yellow); Glucose Qualitative, Urine Neg (Neg); Ketones, Urine Neg (Neg); Leukocyte Esterase, Urine 2+ (Neg); Nitrite, Urine Neg (Neg); Protein, Urine 2+ (Neg); Urobilinogen, Urine NORM (Normal); pH, Urine 6.5 (5.0-8.0)
[2022-03-15 06:53] LABS: Bacteria Many /hpf; Squamous Epithelial Cells Many /hpf (Few)
--- NOTE | 2022-03-15 18:44 | NUR ---
SHIFT SUMMARY 77-YEAR-OLD FEMALE, A&O X3, FULL CODE. PTN QUIET AND WITHDRAWN, EATING SMALL AMOUNTS. AWAITING BED IN [place] FOR CARDIOLOGY. STANDBY ASSIST. CONTINENT WITH URGENCY AT TIMES INCONTINENT. IV IN L FOREARM. CONTINUE TO MONITOR.
[2022-03-18 14:11] LABS: CREATININE, URINE 45.1 mg/dL (Not Estab.)
[2022-03-19 08:10] LABS: ALDOS/RENIN RATIO <.6 (0.0-30.0); ALDOSTERONE <1.0 ng/dL (0.0-30.0)
== END 2022-03-16 01:36 | disposition short-term general hospital (02) | DRG 673 ==
LOC: ER 12:34 → PCU 18:24 → MEDS 03-14 10:09
PROVIDERS: Internal Medicine; Internal Medicine Nephrology; Physician Assistant; Student in an Organized Health Care Education/Training Program; ADMIT Internal Medicine
PROC: B315YZZ Fluoroscopy of Bilateral Common Carotid Arteries using Other Contrast (ICD-10-PCS; principal; 2022-03-12)
PROC: B31NYZZ Fluoroscopy of Other Upper Arteries using Other Contrast (ICD-10-PCS; 2022-03-12)
PROC: B31DYZZ Fluoroscopy of Right Vertebral Artery using Other Contrast (ICD-10-PCS; 2022-03-12)
PROC: B312YZZ Fluoroscopy of Left Subclavian Artery using Other Contrast (ICD-10-PCS; 2022-03-12)
PROC: 037 Upper Arteries, Dilation (ICD-10-PCS; 2022-03-13)
PROC: 3E05317 Introduction of Other Thrombolytic into Peripheral Artery, Percutaneous Approach (ICD-10-PCS; 2022-03-13)
DX: I70.1 Atherosclerosis of renal artery (principal); I63.81 Other cerebral infarction due to occlusion or stenosis of small artery; N17.9 Acute kidney failure, unspecified; E87.1 Hypo-osmolality and hyponatremia; I16.0 Hypertensive urgency; D63.1 Anemia in chronic kidney disease; I12.9 Hypertensive chronic kidney disease with stage 1 through stage 4 chronic kidney disease, or unspecified chronic kidney disease; N18.30 Chronic kidney disease, stage 3 unspecified; F32.A Depression, unspecified; E78.2 Mixed hyperlipidemia; I65.23 Occlusion and stenosis of bilateral carotid arteries; R91.1 Solitary pulmonary nodule; E88.09 Other disorders of plasma-protein metabolism, not elsewhere classified; Z87.891 Personal history of nicotine dependence; Z98.890 Other specified postprocedural states; Z79.899 Other long term (current) drug therapy
CPT/HCPCS: 36223; 36252; 36415; 37236; 37237; 70450; 70551; 72125; 73630; 76770; 76937; 80048; 80053; 80069; 81001; 82088; 82533; 82570; 83735; 83880; 84100; 84244; 84443; 84484; 84585; 85014; 85018; 85025; 85027; 87086; 93005; 93010; 93306; 93880; 93975; 93976; 94760; 96374-59; 97110; 97116; 97162; 97530; 99152; 99153; 99285-25; A9270; C1725; C1760; C1769; C1876; C1887; C1894; J0360; J1644; J2250; J2405; J2997; J3010; J7030; J7040; J7060; P9612; Q9967

== ENCOUNTER → 2022-04-16 | Outpatient (CLI) | payer MEDICARE ==
[~2022-04-16] MED LIST changes: +ESCI10 PO; +LISINOPRIL-HCT1 EACH PO; +LORA.5 PO
[2022-04-16 18:04] LABS: Source, Urine Clean Catch
[2022-04-16 18:10] LABS: Appearance, Urine Hazy (Clear); Bilirubin, Urine Neg (Neg); Blood, Urine 1+ (Neg); Color, Urine Yellow (P-Yellow); Glucose Qualitative, Urine Neg (Neg); Ketones, Urine Neg (Neg); Leukocyte Esterase, Urine 2+ (Neg); Nitrite, Urine Neg (Neg); Protein, Urine 2+ (Neg); Urobilinogen, Urine NORM (Normal)
[2022-04-16 18:21] LABS: Bacteria Few /hpf; Squamous Epithelial Cells Many /hpf (Few)
[2022-04-16 18:22] LABS: Renal Epithelial Few /hpf (0-Rare)
== END | disposition home or self-care (01) ==
LOC: LAB SHORT 14:45 → LAB 14:45
PROVIDERS: Nurse Practitioner Family
DX: N39.46 Mixed incontinence (principal)
CPT/HCPCS: 81001; 87086

== ENCOUNTER 2023-07-29 13:43 | Emergency (ER) | payer MEDICARE ==
[~2023-07-29] VITALS: Ht 162.6 cm; Wt 76.2 kg
[2023-07-29] MEDS ORDERED: NS 1,000 ML IV SCH ×2 (14:15→19:10)
[2023-07-29] MEDS ORDERED: AMLODIPINE BESYL5 MG PO (14:29)
[2023-07-29] MEDS ORDERED: METOPROLOL SUCC25 MG PO (14:29)
[2023-07-29] MEDS ORDERED: LOSARTAN POTASS25 M2 PO (14:30)
[2023-07-29] MEDS ORDERED: PLAVIX75 MG PO (14:30)
[2023-07-29 14:50] LABS: BASOPHILS ABSOLUTE AUTO 0.05 K/mm3 (0.00-0.23); BASOPHILS PERCENT AUTO 1 % (0-2); EOSINOPHILS ABSOLUTE AUTO 0.15 K/mm3 (0.00-0.68); EOSINOPHILS PERCENT AUTO 2 % (0-6); Hematocrit 34.6 % (33.0-51.0); Hemoglobin 11.7 g/dL (11.5-16.0); IMMATURE GRAN ABSOLUTE AUTO 0.11 K/mm3 (0.00-0.10); IMMATURE GRAN PERCENT AUTO 1 % (0-1); LYMPHOCYTES ABSOLUTE AUTO 1.92 K/mm3 (0.84-5.20); LYMPHOCYTES PERCENT AUTO 22 % (21-46); MONOCYTES ABSOLUTE AUTO 0.66 K/mm3 (0.16-1.47); MONOCYTES PERCENT AUTO 8 % (4-13); Mean Corpuscular HGB 31.3 pg (26.0-34.0); Mean Corpuscular HGB Conc 33.8 g/dL (31.5-36.5); Mean Corpuscular Volume 93 fL (80-100); Mean Platelet Volume 11.4 fL (9.1-12.4); NEUTROPHILS ABSOLUTE AUTO 5.74 K/mm3 (1.96-9.15); NEUTROPHILS PERCENT AUTO 67 % (41-73); Platelet Count 249 K/mm3 (150-400); RDW Coefficient Variation 13.5 % (11.7-14.2); RDW Standard Deviation 45.1 fL (35.1-46.3); Red Blood Cell Count 3.74 M/mm3 (3.80-5.20); White Blood Cell Count 8.63 K/mm3 (4.00-11.30)
[2023-07-29 15:11] LABS: Albumin, Blood 3.6 g/dL (3.4-5.0); Albumin/Globulin Ratio 0.9 (0.8-1.8); Bilirubin, Total 0.4 mg/dL (0.1-1.0); Bun/Creatinine Ratio 16.1 (12.0-20.0); Calcium, Blood 11.9 mg/dL (8.5-10.1); Creatinine, Blood 4.46 mg/dL (0.40-1.00); Globulin, Blood 4.1 g/dL (2.2-4.0); Potassium, Blood 4.6 mmol/L (3.5-5.5); Total Protein, Blood 7.7 g/dL (6.4-8.2)
[2023-07-29 17:45] LABS: Source, Urine Clean Catch
[2023-07-29 17:49] LABS: Appearance, Urine Clear (Clear); Bilirubin, Urine Neg (Neg); Blood, Urine 1+ (Neg); Color, Urine Yellow (P-Yellow); Glucose Qualitative, Urine Neg (Neg); Ketones, Urine Neg (Neg); Leukocyte Esterase, Urine 2+ (Neg); Nitrite, Urine Neg (Neg); Protein, Urine 2+ (Neg); Specific Gravity, Urine 1.015 (1.003-1.022); Urobilinogen, Urine NORM (Normal)
[2023-07-29 17:55] LABS: Amorphous Mod (0-Heavy); Bacteria Mod /hpf; Squamous Epithelial Cells Few /hpf (Few)
[2023-07-29 17:56] LABS: Renal Epithelial Rare /hpf (0-Rare)
[2023-07-29] MEDS ORDERED: Cephalexin Monohydrate 500 MG Cap PO ONE (20:45)
[2023-07-29] MEDS ORDERED: LIDO700A20 TOP (20:50)
[2023-07-29] MEDS ORDERED: CEPH500 PO (20:50)
[2023-07-29 21:00] VITALS: BP 128/76
[2023-07-29] MEDS ORDERED: Lidocaine 4% 1 Patch TOP ONE (21:05)
== END 2023-07-29 21:26 | disposition home or self-care (01) ==
LOC: ER 13:43
PROVIDERS: Physician Assistant
DX: N15.9 Renal tubulo-interstitial disease, unspecified (principal); S22.31XA Fracture of one rib, right side, initial encounter for closed fracture; Z87.891 Personal history of nicotine dependence; Z79.02 Long term (current) use of antithrombotics/antiplatelets; Z79.899 Other long term (current) drug therapy; W18.39XA Other fall on same level, initial encounter; Y93.89 Activity, other specified
CPT/HCPCS: 71101; 72100; 80053; 81001; 82550; 85025; 87086; 93005; 93010; 96360; 96361; 99284-25; A9270; J7030

== ENCOUNTER → 2024-02-17 | Outpatient (CLI) | payer MEDICARE ==
[~2024-02-17] MED LIST changes: +AMLODIPINE BESYL5 MG PO; +CEPH500 PO; +LIDO700A20 TOP; +LOSARTAN POTASS25 M2 PO; +METOPROLOL SUCC25 MG PO; +PLAVIX75 MG PO
[2024-02-17 15:25] LABS: Source, Urine Clean Catch
[2024-02-17 16:05] LABS: Appearance, Urine Cloudy (Clear); Bilirubin, Urine Neg (Neg); Blood, Urine 1+ (Neg); Color, Urine Yellow (P-Yellow); Glucose Qualitative, Urine Neg (Neg); Ketones, Urine Neg (Neg); Leukocyte Esterase, Urine 3+ (Neg); Nitrite, Urine Neg (Neg); Protein, Urine 2+ (Neg); Specific Gravity, Urine 1.015 (1.003-1.022); Urobilinogen, Urine NORM (Normal)
[2024-02-17 16:13] LABS: White Blood Cells, Urine TNTC /hpf (0-5)
[2024-02-17 16:14] LABS: Bacteria Many /hpf; Red Blood Cells, Urine 0-2 /hpf (0-2); Squamous Epithelial Cells Few /hpf (Few)
== END ==
LOC: LAB SHORT 15:23 → LAB 15:23
PROVIDERS: Nurse Practitioner Family
DX: N39.0 Urinary tract infection, site not specified (principal)
CPT/HCPCS: 81001; 87086

== ENCOUNTER → 2024-06-15 | Outpatient (CLI) | payer MEDICARE, OTHER ==
[2024-06-15 17:18] LABS: Source, Urine Clean Catch
[2024-06-15 18:43] LABS: Appearance, Urine Clear (Clear); Bilirubin, Urine Neg (Neg); Blood, Urine 1+ (Neg); Color, Urine Yellow (P-Yellow); Glucose Qualitative, Urine Neg (Neg); Ketones, Urine Neg (Neg); Leukocyte Esterase, Urine 1+ (Neg); Nitrite, Urine Neg (Neg); Protein, Urine 3+ (Neg); Specific Gravity, Urine 1.015 (1.003-1.022); Urobilinogen, Urine NORM (Normal)
[2024-06-15 18:56] LABS: Bacteria Many /hpf; Squamous Epithelial Cells Mod /hpf (Few)
== END ==
LOC: LAB SHORT 17:16 → LAB 17:16
PROVIDERS: Physician Assistant
DX: N39.0 Urinary tract infection, site not specified (principal)
CPT/HCPCS: 81001; 87086

== ENCOUNTER → 2024-06-20 | Outpatient (CLI) | payer MEDICARE, OTHER | LOC: LAB 16:05 → LAB SHORT 16:05 | DX: N39.0 Urinary tract infection, site not specified (principal) | CPT/HCPCS: 87086 ==

== ENCOUNTER → 2024-08-03 | Outpatient (CLI) | payer MEDICARE, OTHER ==
[2024-08-03 17:27] LABS: Source, Urine Clean Catch
[2024-08-03 19:07] LABS: Appearance, Urine Cloudy (Clear); Bilirubin, Urine Neg (Neg); Blood, Urine 5+ (Neg); Color, Urine Yellow (P-Yellow); Glucose Qualitative, Urine 2+ (Neg); Ketones, Urine Neg (Neg); Leukocyte Esterase, Urine 3+ (Neg); Nitrite, Urine Pos (Neg); Protein, Urine 3+ (Neg); Specific Gravity, Urine 1.015 (1.003-1.022); Urobilinogen, Urine 1+ (Normal)
[2024-08-03 19:48] LABS: Red Blood Cells, Urine TNTC /hpf (0-2); White Blood Cells, Urine TNTC /hpf (0-5)
[2024-08-03 19:49] LABS: Bacteria Many /hpf; Mucus Light (0-Heavy); Squamous Epithelial Cells Rare /hpf (Few); Transitional Epithelial Cells Rare /hpf (0-Rare)
== END ==
LOC: LAB SHORT 17:23 → LAB 17:23
PROVIDERS: Physician Assistant
DX: N39.0 Urinary tract infection, site not specified (principal)
CPT/HCPCS: 81001; 87086

== ENCOUNTER → 2024-09-11 | Outpatient (CLI) | payer MEDICARE, OTHER ==
[2024-09-11 16:55] LABS: Source, Urine Voided
[2024-09-11 18:22] LABS: Appearance, Urine Hazy (Clear); Bilirubin, Urine Neg (Neg); Blood, Urine Neg (Neg); Color, Urine Yellow (P-Yellow); Glucose Qualitative, Urine Neg (Neg); Ketones, Urine Neg (Neg); Leukocyte Esterase, Urine 2+ (Neg); Nitrite, Urine Neg (Neg); Protein, Urine 3+ (Neg); Urobilinogen, Urine NORM (Normal)
[2024-09-11 18:55] LABS: Amorphous Light (0-Heavy); Bacteria Mod /hpf; Hyaline Casts 0-2 /lpf (0-2); Red Blood Cells, Urine 0-2 /hpf (0-2); Squamous Epithelial Cells Few /hpf (Few); White Blood Cells, Urine 25-50 /hpf (0-5)
== END ==
LOC: LAB 11:30 → LAB SHORT 11:30
PROVIDERS: Physician Assistant
DX: N39.0 Urinary tract infection, site not specified (principal)
CPT/HCPCS: 81001; 87086

== ENCOUNTER 2024-09-20 19:05 | Emergency (ER) | payer MEDICARE, OTHER ==
[~2024-09-20] VITALS: Ht 162.6 cm; Wt 68.0 kg
[2024-09-20 19:05] VITALS: BP 158/83
[2024-09-20 19:24] LABS: BASOPHILS ABSOLUTE AUTO 0.04 K/mm3 (0.00-0.23); BASOPHILS PERCENT AUTO 0 % (0-2); EOSINOPHILS PERCENT AUTO 3 % (0-6); Hematocrit 32.5 % (33.0-51.0); Hemoglobin 10.8 g/dL (11.5-16.0); IMMATURE GRAN ABSOLUTE AUTO 0.03 K/mm3 (0.00-0.10); IMMATURE GRAN PERCENT AUTO 0 % (0-1); LYMPHOCYTES ABSOLUTE AUTO 2.42 K/mm3 (0.84-5.20); LYMPHOCYTES PERCENT AUTO 26 % (21-46); MONOCYTES ABSOLUTE AUTO 0.88 K/mm3 (0.16-1.47); MONOCYTES PERCENT AUTO 10 % (4-13); Mean Corpuscular HGB 29.3 pg (26.0-34.0); Mean Corpuscular HGB Conc 33.2 g/dL (31.5-36.5); Mean Corpuscular Volume 88 fL (80-100); Mean Platelet Volume 11.1 fL (9.1-12.4); NEUTROPHILS ABSOLUTE AUTO 5.52 K/mm3 (1.96-9.15); NEUTROPHILS PERCENT AUTO 60 % (41-73); Platelet Count 222 K/mm3 (150-400); RDW Coefficient Variation 13.7 % (11.7-14.2); RDW Standard Deviation 44.7 fL (35.1-46.3); Red Blood Cell Count 3.68 M/mm3 (3.80-5.20); White Blood Cell Count 9.19 K/mm3 (4.00-11.30)
[2024-09-20 19:46] LABS: Albumin, Blood 3.4 g/dL (3.4-5.0); Albumin/Globulin Ratio 0.9 (0.8-1.8); Bilirubin, Total 0.3 mg/dL (0.1-1.0); Bun/Creatinine Ratio 16.5 (12.0-20.0); Creatinine, Blood 2.54 mg/dL (0.40-1.00); Globulin, Blood 3.6 g/dL (2.2-4.0)
[2024-09-20] MEDS ORDERED: Ondansetron HCl 2 MG / ML 2ML Vial ONE (20:18)
[2024-09-20] MEDS ORDERED: HYDROcodone 5-APAP 325 TAB PO ONE (20:20)
[2024-09-20] MEDS ORDERED: Ondansetron HCl 2 MG / ML 2ML Vial IV ONE (20:20)
[2024-09-20 20:21] LABS: International Normalized Ratio 0.96; Prothrombin Time Results 10.3 Sec (9.7-11.5)
== END 2024-09-20 20:52 | disposition home or self-care (01) ==
LOC: ER 19:05
PROVIDERS: Student in an Organized Health Care Education/Training Program
DX: S00.03XA Contusion of scalp, initial encounter (principal); I69.398 Other sequelae of cerebral infarction; I12.9 Hypertensive chronic kidney disease with stage 1 through stage 4 chronic kidney disease, or unspecified chronic kidney disease; N18.30 Chronic kidney disease, stage 3 unspecified; Z87.891 Personal history of nicotine dependence; Z79.899 Other long term (current) drug therapy; Z91.81 History of falling; W18.30XA Fall on same level, unspecified, initial encounter
CPT/HCPCS: 70450; 72125; 80053; 85025; 85610; 85730; 96374; 99284-25; A9270; J2405

== ENCOUNTER → 2025-01-16 | Outpatient (CLI) | payer MEDICARE, OTHER ==
[~2025-01-16] MED LIST changes: +IBUP400 PO; +Morphine Sulfat15 MG PO
[2025-01-16 18:39] LABS: Source, Urine Clean Catch
[2025-01-16 19:19] LABS: Bilirubin, Urine Neg (Neg); Color, Urine Yellow (P-Yellow); Glucose Qualitative, Urine Neg (Neg); Ketones, Urine Neg (Neg); Leukocyte Esterase, Urine Neg (Neg); Protein, Urine 3+ (Neg); Specific Gravity, Urine 1.015 (1.003-1.022); Urobilinogen, Urine NORM (Normal)
== END ==
LOC: LAB SHORT 18:38 → LAB 18:38
PROVIDERS: Physician Assistant
DX: N39.0 Urinary tract infection, site not specified (principal)
CPT/HCPCS: 81001; 87086